=== PATIENT | female | born 1960 | race Caucasian/White ===

== ENCOUNTER 2019-11-15 07:35 | Outpatient (CLI) | payer OTHER, SELFPAY ==
--- NOTE | ~2019-11-15 | MR_ITS ---
EXAMINATION: MR abdomen wo/w con INDICATION: Indeterminate liver lesion on outside hospital CT TECHNIQUE: Coronal SSFSE ARC, WATER:coronal LAVA-FLEX, Coronal 2D FIESTA FatSat, Axial SSFSE BH ARC, Axial 3D DualEcho BH, Axial SSFSE-IR, Axial DWI b=500, Axial 2D FIESTA FatSat, pre and dynamic postco ntrast Axial LAVA ARC, postcontrast Coronal In and Opposed phase LAVA FLEX COMPARISON: None available CONTRAST: Multihance, 13 cc FINDINGS: There are multiple cysts of the liver, the largest of which measures 16 mm in the liver dom e. No suspicious liver lesion is identified. The spleen, pancreas, gallbladder, and adrenal glands ar e normal. The kidneys are unremarkable. There are no pathologically enlarged abdominal lymph nodes. A large volume of colonic stool is present. There are no dilated loops of bowel. IMPRESSION: 1. Cysts of the liver measuring up to 16 mm in the liver dome. No suspicious liver lesion identified. Reviewed, dictated and finalized at location B. IMPRESSION: 1. Cysts of the liver measuring up to 16 mm in the liver dome. No suspicious li stuart lesion identified.
[2019-11-15 08:11] LABS: Estimated Glomerular Filt Rate > 60
== END 2019-11-15 07:36 | disposition home or self-care (01) ==
DX: K76.9 Liver disease, unspecified (principal)
CPT/HCPCS: 74183; A9577

== ENCOUNTER → 2020-08-07 04:05 | Outpatient (CLI) | payer OTHER, SELFPAY ==
[2020-08-07 19:46] LABS: SARS-CoV-2 RNA PCR Negative
== END ==
PROVIDERS: Visit Provider Internal Medicine Gastroenterology
DX: Z01.812 Encounter for preprocedural laboratory examination (principal); Z20.822 Contact with and (suspected) exposure to COVID-19
CPT/HCPCS: C9803; U0003; U0005

== ENCOUNTER 2020-08-11 01:14 | Day surgery (SDC) | payer OTHER, SELFPAY ==
[2020-08-03 11:45] VITALS: BMI 24.2
[2020-08-11 08:19] VITALS: BP 142/66; PULSE 52; RESP 16; TEMP 36.4; O2SAT 100; BMI 25.4
[2020-08-11] MEDS: LACTATED RINGERS 1,000 ML 150 ML IV CONT (08:40)
--- NOTE | 2020-08-11 08:55 | WPDANESEPPF ---
Anes - Initial Pre Proc Eval Procedure: Operation Date: 08/11/20 09:00 Proposed Procedures p Esophagogastroduodenoscopy & Colonoscopy - Randy Schwab MD Date/Time: 08/11/20 08:55 Surgeon: Randy Schwab MD Pre Op Diagnosis: change in bowel habits, dysphagia Patient Data Age: 60 Gender: F Height: 5 ft 4 in Weight: 67.2 kg Last Vital Signs Temp 97.5 F L 08/11/20 08:19 Pulse 52 L 08/11/20 08:19 Resp 16 08/11/20 08:19 BP 142/66 H 08/11/20 08:19 Pulse Ox 100 08/11/20 08:19 Allergies Allergy/AdvReac Type Severity Reaction Status Date / Time No Known Allergies Allergy Verified 08/11/20 08:16 Home Medications Medication Instructions Recorded Confirmed Type trazodone 50 mg tablet 50 mg PO .QHS #30 tablet 02/21/19 08/11/20 Rx apixaban 5 mg tablet 5 mg PO BID 07/28/20 08/11/20 History gabapentin 300 mg capsule 300 mg PO HS cap 07/28/20 08/11/20 History Adult Probiotic 1 cap PO DAILY 08/03/20 08/11/20 History cholecalciferol (vitamin D3) 50 mcg PO DAILY 08/03/20 08/11/20 History [Vitamin D3] glucos sul [id number] 1 cap PO DAILY 08/03/20 08/11/20 History [Glucosamine Chondroitin] Patient hx anesthesia problems: none Family hx anesthesia problems: none PMFSH Past Medical History Medical History (Updated 07/28/20 @ 12:00 by Xenia Huang APN-C) Blood clot in vein Change in bowel habits Dysphagia Factor 5 Leiden mutation, heterozygous Liver cyst LUQ abdominal pain Stroke Weight loss Family History Family History (Updated 07/28/20 @ 10:41 by Arabella Quintero MA) Father Patient's father is in good health Mother Family history of congestive heart failure Grandparent Pancreatic cancer Social History Social History (Updated 07/28/20 @ 11:57 by Arabella Quintero MA) Smoking status: Never smoker Second hand tobacco smoke exposure: No Alcohol intake: current Drinks per week: 3 Substance use: current Substance use type: marijuana Other substance usage details: POT/GUMMIES HELPS WITH SLEEP Living arrangements: with family Gender identity (if verbalized by the patient): Female Spiritual care concerns: No Anes - Eval Final PreProcedure Day of Procedure 08/11/20 08:55 Patient weight: normal Heart: regular rate and rhythm Lungs: clear to auscultation Airway: Mallampati scale class II Neurological: alert and oriented Last oral intake: >/= 8 hours ASA classification: III Emergent: no Anesthetic plan: proceed Anesthesia type and monitoring: general GIVS and standard monitoring Informed Consent: The patient's anesthetic plan and its attendant risks and benefits were discussed with the patient/family/POA. Questions were solicited and answers provided to the satisfaction of the patient/family/POA.
--- NOTE | 2020-08-11 09:16 | PM.HPGS ---
History of Present Illness History of Present Illness Consent: Risks, benefits, and alternatives have been discussed and questions answered. Patient agrees to proceed with procedure. Chief complaint: change in bowel habits, dysphagia Narrative: Andria Jimenez is a 60 year old female with several complaints. For about 6 months she has been troubled by a pain in the upper abdomen. It is more on the left side than the right. At times it is actually in the lower thorax, giving her the impression that her bra is too tight. She has had some dysphagia, mainly for pills. She also has had frequent loose stools, often having 6 or more watery bowel movements per day. One physician had given her Linzess which only made matters worse, so she stopped it after 2 days. Her weight has been stable Review of Systems Review of Systems: All systems reviewed & are unremarkable except as noted in HPI and below PMFSH Past Medical History Medical History Blood clot in vein Change in bowel habits Dysphagia Factor 5 Leiden mutation, heterozygous Liver cyst LUQ abdominal pain Stroke Weight loss Family History Family History Father Patient's father is in good health Mother Family history of congestive heart failure Grandparent Pancreatic cancer Social History Social History Smoking status: Never smoker Second hand tobacco smoke exposure: No Alcohol intake: current Drinks per week: 3 Substance use: current Substance use type: marijuana Other substance usage details: POT/GUMMIES HELPS WITH SLEEP Living arrangements: with family Gender identity (if verbalized by the patient): Female Spiritual care concerns: No Meds Home Medications and Allergies Home Medications Medication Instructions Recorded Confirmed Type trazodone 50 mg tablet 50 mg PO .QHS #30 tablet 02/21/19 08/11/20 Rx apixaban 5 mg tablet 5 mg PO BID 07/28/20 08/11/20 History gabapentin 300 mg capsule 300 mg PO HS cap 07/28/20 08/11/20 History Adult Probiotic 1 cap PO DAILY 08/03/20 08/11/20 History cholecalciferol (vitamin D3) 50 mcg PO DAILY 08/03/20 08/11/20 History [Vitamin D3] glucos sul [id number] 1 cap PO DAILY 08/03/20 08/11/20 History [Glucosamine Chondroitin] Allergies Allergy/AdvReac Type Severity Reaction Status Date / Time No Known Allergies Allergy Verified 08/11/20 08:16 Vital Signs Vital Signs - 24 hr 08/11/20 08:19 Temperature 36.4 C L Pulse Rate 52 L Respiratory Rate 16 Blood Pressure 142/66 H Pulse Oximetry 100 Exam Resp: Auscultation: clear to auscultation bilaterally Cardio: Rate: regular rate Rhythm: regular rhythm GI: GI Palp: Yes Soft to palpation and No Tenderness to palpation present (GI) Assessment and Plan Assessment and plan (1) Dysphagia: Code(s): R13.10 - Dysphagia, unspecified Status: Acute Assessment and Plan: EGD with possible biopsy or dilatation or cautery. (2) Chronic diarrhea: Code(s): K52.9 - Noninfective gastroenteritis and colitis, unspecified Status: Acute Assessment and Plan: Colonoscopy with possible biopsy or polypectomy or cautery or injection of substances.
[2020-08-11 10:04] VITALS: BP 117/79; PULSE 91; RESP 16; O2SAT 100
[2020-08-11 10:14] VITALS: BP 142/90; PULSE 87; RESP 16; O2SAT 100
[2020-08-11 10:24] VITALS: BP 149/99; PULSE 83; RESP 16; O2SAT 100
== END 2020-08-11 10:40 | disposition home or self-care (01) ==
PROVIDERS: Visit Provider Internal Medicine Gastroenterology
PROC: 0DJ08ZZ Inspection of Upper Intestinal Tract, Via Natural or Artificial Opening Endoscopic (ICD-10-PCS; CPT 43235; principal; 2020-08-11 09:00)
DX: R19.7 Diarrhea, unspecified (principal); K57.30 Diverticulosis of large intestine without perforation or abscess without bleeding; K29.70 Gastritis, unspecified, without bleeding; R13.10 Dysphagia, unspecified; D68.51 Activated protein C resistance; Z79.01 Long term (current) use of anticoagulants; Z86.73 Personal history of transient ischemic attack (TIA), and cerebral infarction without residual deficits; F12.90 Cannabis use, unspecified, uncomplicated
CPT/HCPCS: 45380; 43239; 87081; 88305; C9803; J2704; J7120; U0003; U0005